=== PATIENT | female | born 1950 | race Caucasian/White ===

== ENCOUNTER 2016-12-19 14:45 | Observation (INO) | payer MEDICARE, OTHER ==
[~2016-12-19] VITALS: Ht 162.6 cm; Wt 78.5 kg
--- NOTE | ~2016-12-19 | HP ---
PATIENT'S NAME: LEAH RAMOS [facility] AGE: 66 Y [address] ROOM: [id number] [place], [place] [address] LOCATION: [facility] ADMIT DATE: 12/19/2016 History & Physical DISCHARGE DATE: FAMILY PHYSICIAN: Neda Moore MD ATTENDING PHYSICIAN: JULIET RICH DATE OF SERVICE: HISTORY OF PRESENT ILLNESS: This is a 66-year-old female with past medical history of atypical migraine. She has a history of dyslipidemia, has no other history as such, who was seen at an outside facility for numbness, tingling of her bilateral hands and feet. In her bilateral hands, it is up to the midforearm. In bilateral feet, it is up to her ankles. She had stated that it started a month ago. She had an episode where she had neck discomfort, and this radiated to the left shoulder, and she had some deep tissue massage provided by her daughter and that went away, and this morning, she started having the same neck pain while at [facility], and this again radiated to the left shoulder, but then the symptoms kind of worsened to a point where she has bilateral numbness and tingling of her hands up to her mid forearm and bilateral feet up to her ankles. She denies any loss of proprioception. She states that all her sensations are intact, pinprick and soft touch, however, it did not go away. It lasted for about 2 hours or so, and this scared her, and she went to the ER. By the time she went to the ER, they had applied deep tissue pressure to her bilateral hands and feet, and apparently, it went away. The patient otherwise denies any fevers, chills, shortness of breath, chest pain, nausea, vomiting, diarrhea, or urinary changes. She also denies any recent travels. Her last travel was in September where she went to [place], it was pretty uneventful. The patient of note stated that when she came in for admission, she initially had some left lateral foot numbness and tingling but as she walked to the bathroom, it had dissipated. PAST MEDICAL HISTORY: Again atypical migraines, dyslipidemia, history of arthritis. Apparently, she had a history of TIA years ago after her . PAST SURGICAL HISTORY: She has a right hip replacement and bilateral knee replacement many years ago. FAMILY HISTORY: She has a history of sarcoidosis in her mother. No history of MS in the family. PATIENT'S NAME: LEAH RAMOS [facility] AGE: 66 Y [address] 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 ALLERGIES: SHE HAS PENICILLIN FOR ALLERGIES, AND ALSO SHE HAS ENVIRONMENTAL ALLERGIES. PHYSICAL EXAMINATION: VITAL SIGNS: The patient is afebrile, heart rates in the 80s, blood pressure is 130s over 90s. She is saturating at 100% on room air. GENERAL: She is alert, awake, oriented. She is in not acute distress. HEENT: Within normal limits. LUNGS: The patient's lung sounds are clear. No crackles. No wheezing present. HEART: Regular rate and rhythm for heart sounds and no murmurs, no rubs. ABDOMEN: Nontender. No guarding. No rigidity. No organomegaly. No pedal edema. SKIN: Intact. NEUROLOGIC: At this time, neurologically grossly normal. She is moving all her extremities. She is able to feel all sensations, pinprick, soft touch. She has no numbness, tingling at this time. Proprioception is intact. LABORATORY VALUES: From the outside facility, her UA is within normal limits. Her thyroid studies are within normal limits. ESR is 21. Her WBC is 3, which is slightly leukopenic, the normal range is 4. She has normal hemoglobin at 13. Her platelets are 110, which is low. Their normal is 150 to 400. Otherwise, CMP lab values are normal. A chest x-ray is not done. This is all the results that I have. ASSESSMENT AND PLAN: This is a 66-year-old female with past medical history of atypical migraine, dyslipidemia, who has been admitted for neck pain with refer pain to the left shoulder, hands and feet numbness and tingling, and was found to have thrombocytopenia and leukopenia. For plan cedillo, we will admit the patient for observation. We will consult Neurology as this was a request for Neurology to transfer to [facility]. We will obtain an MRI cervical spine with and without contrast tomorrow. We will obtain an MRI brain with and without contrast tomorrow. From my standpoint, we will order an ESR, CRP, SARINA, ANCA, mag, phos, CBC, CMP, TSH, free T4, hemoglobin A1c, lipid profile, B12, folic acid, peripheral smear, hepatitis panel for B and C, anti-Ro and anti-LA. We will check for copper, methylmalonic acid, homocystine level, thiamine level, rheumatoid factor, and RPR. In regard to her neck pain and radiating to left PATIENT'S NAME: LEAH RAMOS [facility] AGE: 66 Y [address] ROOM: [address] [place] [id number] LOCATION: [facility] ADMIT DATE: 12/19/2016 History & Physical DISCHARGE DATE: FAMILY PHYSICIAN: Neda Moore MD ATTENDING PHYSICIAN: JULIET RICH shoulder, this is atypical for cardiac event. However, we will complete the workup by obtaining an EKG placed on telemetry. Check troponins q.6 x3. We will also obtain a chest x-ray today. For DVT prophylaxis, she is moving around in the room pretty good, so we will continue with SCD for DVT prophylaxis. I do not believe that she needs a PT, OT consult at this time. MD ROSINA SINGH/collins /[id number] D: T: [id number] HISTORY & PHYSICAL
--- NOTE | ~2016-12-19 | CON ---
PATIENT'S NAME: LEAH RAMOS [facility] AGE: 66 Y [address] ROOM: [address] [address] LOCATION: [facility] ADMIT DATE: 12/19/2016 Consultation DISCHARGE DATE: 12/20/2016 FAMILY PHYSICIAN: Neda Moore MD ATTENDING PHYSICIAN: Amina Veliz DATE OF CONSULTATION: 12/20/2016 CHIEF COMPLAINT: Numbness. HISTORY OF PRESENT ILLNESS: This is a 66-year-old female with a past medical history of atypical migraine, dyslipidemia, and really no other medical history. She was seen in an outside facility for numbness and tingling of her bilateral hands and feet. This was more than just a paresthesia. It was almost like a needle-like sensation in bilateral hands up to about mid-forearm. In her feet, it progressed up to her ankles. About a month ago, she had an episode of neck discomfort, sort of like she slept wrong on her pillow, and this radiated to her left shoulder. She had some deep tissue massage and the feeling went away. Yesterday, she had the same neck pain and it again radiated to the left shoulder, but then went down her lateral arm into her thumb, almost in a C5-C6 distribution. In addition to that, she has had bilateral numbness and tingling of both of her hands to the mid forearm and bilateral feet up to her ankles. She denies any loss of proprioception. She denies any loss of strength. It lasted for about 2 hours this time, so she did go to the emergency room. In the emergency room, they did some deep tissue pressure and apparently the sensation went away. She has not been ill nor had any ill contacts nor travelled outside the [place]. She denies fevers, chills, shortness of breath, chest pain, nausea, vomiting, diarrhea, or any urinary changes. PAST MEDICAL HISTORY: Includes: 1. Atypical migraines. 2. Dyslipidemia. 3. History of arthritis. 4. Apparently, she had a history of TIA years ago after her . PAST SURGICAL HISTORY: Includes: 1. Right hip replacement. 2. Bilateral knee replacement. FAMILY HISTORY: PATIENT'S NAME: LEAH RAMOS [facility] AGE: 66 Y [address] ROOM: [id number] [place], [place] [address] LOCATION: [facility] ADMIT DATE: 12/19/2016 Consultation DISCHARGE DATE: 12/20/2016 FAMILY PHYSICIAN: Neda Moore MD ATTENDING PHYSICIAN: Amina Veliz She does have a history of sarcoidosis in her mother. There is no history of MS in her family. 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 She is a nonsmoker and a nondrinker. She is physically active and participates in a formal exercise program. ALLERGIES: PENICILLIN. SHE ALSO HAS ENVIRONMENTAL ALLERGIES. PHYSICAL EXAMINATION: VITAL SIGNS: The patient is afebrile, heart rate 84, blood pressure 126/84, saturating 100% on room air. GENERAL: She is alert, awake, and oriented x4. She is in no acute distress and is a delightful conversational. HEENT: Within normal limits. LUNGS: Lung sounds are clear without adventitious sounds. HEART: Regular rate and rhythm with no murmur, rub, or gallop. NEUROLOGIC: Alert and oriented x4. Cranial nerve exam 2 through 12 is intact. Sensation intact to light touch in all extremities. She has no numbness and tingling at this time. I cannot elicit any radiculopathy. Muscle tone is excellent and fluid, and muscle bulk is excellent. DIAGNOSTICS: She did have an MRI of her cervical spine. Her findings show that the paraspinal soft tissues are notable for multiple thyroid nodules. Her cervical vertebrae right show normal stature. C2-C3 has some left facet DJD with no stenosis. C3-C4 shows some broad posterior disk osteophyte and bilateral facet DJD. There is mild canal stenosis, moderate left and mild right foraminal stenosis. C4-C5 shows central disk protrusion with mild canal stenosis. C5-C6 shows moderately advanced degenerative disk disease with height loss and broad posterior disk osteophyte, mild canal stenosis, and severe left and moderate right foraminal stenosis. C6 through 7 shows moderate disk disease. There is a shallow broad posterior disk osteophyte, [id number] left and mild right foraminal stenosis. C7 through T1 is negative. The MRI of the brain shows a normal MRI of the brain with and without contrast. ASSESSMENT AND PLAN: This 66-year-old female does have what appears to be cervical pain affecting her left shoulder, left arm, and down to her left hand. Her MRI does demonstrate some foraminal stenosis which is worse on the left. The patient PATIENT'S NAME: LEAH RAMOS [facility] AGE: 66 Y [address] ROOM: [address] [address] LOCATION: [facility] ADMIT DATE: 12/19/2016 Consultation DISCHARGE DATE: 12/20/2016 FAMILY PHYSICIAN: Neda Moore MD ATTENDING PHYSICIAN: Amina Veliz would like to follow Dr. Holland in [place] with this finding. As far as her paresthesia in her bilateral hands and feet, we really do not have an answer for this. Her folate was normal and her B12 was normal. She did have some exposure to a pesticide called Grazon. However, research into this pesticide does not elicit any concerning activity. I would consider following this and doing an EMG study forelimb to further workup her paresthesias for her hands and feet. She does have some carpal tunnel when she holds on to the steering wheel; however, she states this is much different than that. I would like to thank you for the opportunity to participate in this patient's plan of care. The plan of care was discussed with Dr. Olson. If you have any questions, please do not hesitate to call us. JUAN ANDERSEN APRN FOR CORINNE VÁZQUEZ MD PP/maheshl /[id number] d: t: 12/20/16 2150, CONSULTATION REPORT
--- NOTE | ~2016-12-19 | DS ---
PATIENT'S NAME: LEAH RAMOS [facility] AGE: 66 Y [address] ROOM: [address] [address] LOCATION: [facility] ADMIT DATE: 12/19/2016 Discharge Summary DISCHARGE DATE: 12/20/2016 FAMILY PHYSICIAN: Neda Moore MD ATTENDING PHYSICIAN: Amina Veliz REASON FOR ADMISSION: Numbness and tingling of hands and feet. ADMISSION DIAGNOSIS: Poly axonal dysesthesia. SECONDARY DIAGNOSES: 1. History of atypical migraines. 2. Dyslipidemia. 3. Neck pain with radiation to left shoulder. 4. Thrombocytopenia. 5. Leukopenia. CONSULTING PHYSICIANS: Neurology. PENDING LABS AND TESTS AT THE TIME OF DISCHARGE: EMG to be scheduled at the patient's convenience, which she wishes to have this scheduled after visit with Dr. Holland tomorrow. HOSPITAL COURSE: This is a very pleasant 66-year-old female with medical history detailed above, who was admitted for neck pain with radiation to left shoulder, also associated hand and feet numbness and tingling of all digits to mid forearm bilaterally as well as to mid garcía bilaterally. Workup included inflammatory markers, SARINA, mag, phos, CBC, CMP, TSH, A1c, lipid profile, B12, folic acid, peripheral smear, and hepatitis B and C, antibodies as well as copper, methylmalonic acid, homocysteine, thiamine, and rheumatoid factor levels. The vast majority of the studies were negative at the time of discharge with exception of SARINA positive at a low titer of only 1 to 80 in a homogeneous pattern and this was deemed to be difficult to interpret in the clinical setting. The patient's symptoms spontaneously resolved nearly completely, with her only complaint on date of discharge being some ongoing "abnormal sensation" in the fingertips of her right hand digits one through five. Regarding further history of this concern, the patient notes one prior episode of numbness/tingling of her bilateral hands and feet, which had started approximately a month ago and was self-limited. Her daughter is a massage therapist and she underwent massage and reports that she felt this had helped to alleviate her symptoms. She denies any other known neurologic concerns. No double vision. No blurred vision. No strength deficits or other focal deficits. These sensations will come on very rapidly and often times asymmetrically. She is uncertain of any alleviating factors to this point, although most of the time they do go away on their own, however, this PATIENT'S NAME: LEAH RAMOS [facility] AGE: 66 Y [address] ROOM: [address] [address] LOCATION: [facility] ADMIT DATE: 12/19/2016 Discharge Summary DISCHARGE DATE: 12/20/2016 FAMILY PHYSICIAN: Neda Moore MD ATTENDING PHYSICIAN: Amina Veliz time after it had lasted approximately 2 hours, she presented to the emergency department and was subsequently admitted. No other significant abnormalities were noted during the patient's stay in regard to vital signs and neurologic examination. Neurology did weigh in on the patient prior to discharge after MRI showed mild canal stenosis and left greater than right foraminal stenosis also at that C5-C6 level. Per Neurology, this new finding was felt to best be followed up by Orthopedic surgery as an outpatient. Given her near complete resolution of symptoms, discharge was offered to the patient, which she agreed to pursue. We will plan for outpatient orthopedics evaluation and subsequently an EMG to further evaluate the neuropathies that the patient is experiencing, which did not classically fit with MRI findings and in the absence of lab abnormalities that may contribute. MEDICATIONS AND PERTINENT CHANGES: No significant changes were made. Home medications, see reconciliation on discharge. CONDITION ON DATE OF DISCHARGE,: Stable. PHYSICAL EXAMINATION: VITAL SIGNS: Last set of vitals, temp 98.7, pulse 71, blood pressure 134/68, respirations 16, saturating 95% on room air. See latest progress note on date of discharge for last physical exam. DISCHARGE INSTRUCTIONS: The patient is discharged with plans to follow up with Dr. Holland tomorrow, December 21, as well as with her PCP in approximately 1 week. Time spent on date of discharge including direct patient care and coordination of discharge activities is 25 minutes. MD ROSELIA EASTON/collins /[id number] d: 12/21/16 0157 t: 12/21/16 0800, DISCHARGE SUMMARY
--- NOTE | 2016-12-19 18:21 | NUR ---
Significant Event: Arrived from ER at 1530. Up ad cathy in room. Voids without difficulty. C/O numbness/tingling to hands and legs this am, resolved in [place] [facility], patient then transfered to [facility] for further eval. Denies numbness/tingling or pain at this time. Follow up:
[2016-12-19 22:50] LABS: BASOPHIL % 0.6 %; EOSINOPHIL # 0.1 K/uL (0.0-0.5); EOSINOPHIL % 2.5 %; HEMATOCRIT 37.7 % (33.0-46.0); HEMOGLOBIN 12.9 g/dL (10.0-15.0); LYMPHOCYTE # 1.4 K/uL (0.8-4.0); LYMPHOCYTE % 44.3 %; MCHC 34.2 gm/dL (32.0-36.5); MCV 87.7 fl (83.0-98.0); MONOCYTE # 0.3 K/uL (0.0-1.0); MONOCYTE % 7.7 %; MPV 11.3 fl (9.4-12.4); NEUTROPHIL # (ANC) 1.5 K/uL (1.8-7.8); NEUTROPHIL % 44.9 %; NRBC % 0 /100WBC (0-0.00); PLATELET COUNT 112 K/uL (150-450); RDW-CV 13.8 % (11.9-14.6); WBC 3.2 K/uL (4.0-11.0)
[2016-12-19 23:25] LABS: ALBUMIN 3.9 gm/dL (3.5-5.0); ANION GAP 8.6 (10.0-19.0); CALCIUM 8.9 mg/dL (8.5-10.5); CREATININE 1.1 mg/dL (0.5-1.1); MAGNESIUM 2.1 mg/dL (1.8-2.6); PHOSPHORUS 3.1 mg/dL (2.5-4.9); POTASSIUM 3.6 mMol/L (3.7-5.1); TOTAL BILIRUBIN 0.4 mg/dL (0.0-1.5); TOTAL PROTEIN 7.4 g/dL (6.0-8.4)
[2016-12-20 02:50] LABS: HEMATOCRIT 35.6 % (33.0-46.0); HEMOGLOBIN 12.2 g/dL (10.0-15.0); MCH 30.3 pg (27.0-34.0); MCHC 34.3 gm/dL (32.0-36.5); MCV 88.3 fl (83.0-98.0); MPV 11.1 fl (9.4-12.4); PLATELET COUNT 101 K/uL (150-450); RBC 4.03 M/uL (3.50-5.50); RDW-CV 13.7 % (11.9-14.6); WBC 2.7 K/uL (4.0-11.0)
[2016-12-20 04:08] LABS: BANDED NEUTROPHIL # 0.1 K/uL (0.0-0.1); BANDED NEUTROPHILS % 2 %; LYMPHOCYTE # 1.4 K/uL (0.8-4.0); LYMPHOCYTE % 52 %; MONOCYTE # 0.2 K/uL (0.0-1.0); SEGMENTED NEUTROPHIL % 35 %
--- NOTE | 2016-12-20 07:38 | NUR ---
Significant Event: Pt alert and oriented. Cooperative with cares. Has rested well throughout the night. Up ad cathy in room. IV saline locked to right hand. Has denied any nausea/vomiting. Pt denied any numbness or tingling until around 0245, then some numbness and tingling that started in bilateral hands and then she had some burning in right foot. Tylenol given x1 for complaints of a headache, neck pain and left shoulder pain with relief noted. Tele on no calls. VSS. Pt to MRI this morning. Neurology to see today. Follow up:
[2016-12-20] MEDS ORDERED: FENOFIBRATE48 MG PO (13:52)
[2016-12-20] MEDS ORDERED: NABUMETONE750 MG PO (13:53)
[2016-12-20] MEDS ORDERED: THERAGRAN-M1 TAB PO (13:54)
[2016-12-20] MEDS ORDERED: ASPIRIN LO-DOSE81 MG PO (13:54)
[2016-12-20] MEDS ORDERED: METAMUCIL POWD575 G1 PO (13:55)
[2016-12-20] MEDS ORDERED: SKELAXIN800 MG PO (13:55)
--- NOTE | 2016-12-20 15:30 | NUR ---
SPOKE TO PATIENT REGARDING CM AND OUR ROLE. PATIENT LIVES IN OWN HOME ALONE. SHE IS PLANNING ON BEING DISCHARGE HOME TODAY. SHE DOES NOT ANTICIPATE ANY DISCHARGE NEEDS AT THIS TIME. CM WILL CONT TO FOLLOW NEEDED.
--- NOTE | 2016-12-20 17:47 | NUR ---
PT GIVEN DISCHARGE INSTRUCTIONS AND VOICES UNDERSTANDING. MEDICATIONS AND APPOINTMENTS REVIEWED. ESCORTED TO THE FRONT DOOR BY THIS NURSE.
== END 2016-12-20 17:45 | disposition disaster alternative care site (69) ==
LOC: GMSU 15:05
PROVIDERS: ADMIT Hospitalist
DX: R20.8 Other disturbances of skin sensation (principal); M54.2 Cervicalgia; M54.9 Dorsalgia, unspecified; E78.5 Hyperlipidemia, unspecified; D69.6 Thrombocytopenia, unspecified; D72.819 Decreased white blood cell count, unspecified; Z86.73 Personal history of transient ischemic attack (TIA), and cerebral infarction without residual deficits; Z86.69 Personal history of other diseases of the nervous system and sense organs; Z96.653 Presence of artificial knee joint, bilateral; Z96.641 Presence of right artificial hip joint; Z88.0 Allergy status to penicillin